=== PATIENT | female | born 1960 | race African-American/Black ===

== ENCOUNTER 2017-07-21 12:22 | Emergency (ER) | payer MEDICAID ==
[~2017-07-21 12:22] MED LIST: AMLODIPINE; XANAX
== END 2017-07-21 13:54 | disposition left against medical advice (07) ==
LOC: ER 13:50
DX: M54.9 Dorsalgia, unspecified (principal); M25.512 Pain in left shoulder; Z53.21 Procedure and treatment not carried out due to patient leaving prior to being seen by health care provider

== ENCOUNTER 2017-12-25 02:03 | Emergency (ER) | payer MEDICAID ==
[~2017-12-25] VITALS: Ht 172.7 cm; Wt 74.0 kg
[2017-12-25 02:21] VITALS: BP 134/88
== END 2017-12-25 03:50 | disposition left against medical advice (07) ==
LOC: ER 02:03
DX: M25.511 Pain in right shoulder (principal); Z53.21 Procedure and treatment not carried out due to patient leaving prior to being seen by health care provider

== ENCOUNTER 2017-12-31 15:00 | Emergency (ER) | payer MEDICAID ==
[~2017-12-31] VITALS: Ht 172.7 cm; Wt 74.0 kg
[2017-12-31 17:34] LABS: BASOPHILS % 0.6 % (0.0-2.0); EOSINOPHILS % 1.6 % (0.0-5.0); HEMATOCRIT. 41.9 % (36.0-48.0); HEMOGLOBIN. 13.6 g/dL (12.0-16.0); MEAN CORPUSCULAR HEMOGLOBIN 31.2 pg (28.0-32.0); MEAN CORPUSCULAR VOLUME 96.1 fL (81.0-99.0); MEAN PLATELET VOLUME 7.1 fl (7.4-10.4); MONOCYTES % 8.9 % (2.0-8.0); NEUTROPHILS % 54.9 % (40.0-76.0); PLATELET 257 x1000/uL (130-400); RED BLOOD CELL COUNT 4.36 mill/uL (4.2-5.4); RED CELL DISTRIBUTION WIDTH 14.2 % (11.6-14.6)
[2017-12-31 17:41] LABS: INR 1.1
[2017-12-31 17:49] LABS: CARBON DIOXIDE 29 mEq/L (21-32); CHLORIDE 107 mEq/L (98-107)
[2017-12-31 17:50] LABS: TROPONIN I < 0.02 ng/mL (0.00-0.04)
[2017-12-31 19:41] VITALS: BP 141/91
== END 2017-12-31 19:45 | disposition home or self-care (01) ==
LOC: ER 15:52
DX: R07.89 Other chest pain (principal); R20.2 Paresthesia of skin; E78.00 Pure hypercholesterolemia, unspecified; I10 Essential (primary) hypertension
CPT/HCPCS: 36415; 71045; 80053; 83880; 84484; 85025; 85610; 93005; 99285